=== PATIENT | male | born 2000 ===

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

== ENCOUNTER → 2022-07-09 13:03 | Outpatient (BNVA) | payer OTHER, SELFPAY | PROVIDERS: PCP Internal Medicine; Visit Provider Dietitian, Registered | DX: E66.9 Obesity, unspecified (principal); Z68.30 Body mass index [BMI] 30.0-30.9, adult | CPT/HCPCS: 97802 ==

== ENCOUNTER 2022-07-14 10:55 | Outpatient (REF) | payer OTHER, SELFPAY ==
--- NOTE | ~2022-07-14 | US_ITS ---
EXAMINATION: US ABDOMEN COMPLETE CLINICAL INFORMATION: Other specified abnormal findings of blood chemistry. COMPARISON: None available. TECHNIQUE: Real-time imaging of the abdominal viscera. Technically somewhat limited study secondary to bowel gas. FINDINGS: PANCREAS: Obscured by bowel gas. ABDOMINAL AORTA: The proximal, mid, and distal segments are normal in caliber. INFERIOR VENA CAVA: Visualized portions are normal. LIVER: Normal. The liver is not enlarged. The liver contour is normal. Parenchymal echogenicity is normal. No focal hepatic lesion. There is no intrahepatic biliary duct dilatation seen. GALLBLADDER: Normal. The gallbladder is physiologically distended without evidence of stones, sludge, polyps, wall thickening or pericholecystic fluid. COMMON BILE DUCT: Normal in caliber measuring 0.2 cm in diameter. RIGHT KIDNEY: Normal. No hydronephrosis. No renal calculi or focal parenchymal lesions. The kidney measures 10.3 cm in maximum dimension. LEFT KIDNEY: Normal. No hydronephrosis. No renal calculi or focal parenchymal lesions. The kidney measures 10.9 cm in maximum dimension. SPLEEN: Normal. The spleen measures 11.7 cm in maximum dimension. FREE FLUID: None. US/US abdomen complete IMPRESSION: The pancreas is obscured by bowel gas. Otherwise unremarkable abdominal ultrasound.
== END 2022-07-14 10:56 | disposition home or self-care (01) ==
LOC: HO.US 10:55
PROVIDERS: PCP Internal Medicine; Visit Provider Internal Medicine
DX: R79.89 Other specified abnormal findings of blood chemistry (principal); R19.8 Other specified symptoms and signs involving the digestive system and abdomen
CPT/HCPCS: 76700

== ENCOUNTER → 2022-07-28 14:46 | Outpatient (BNVA) | payer OTHER, SELFPAY | PROVIDERS: PCP Internal Medicine; Referring Provider Internal Medicine; Visit Provider Surgery | DX: B36.9 Superficial mycosis, unspecified (principal); R19.8 Other specified symptoms and signs involving the digestive system and abdomen | CPT/HCPCS: 99202 ==

== ENCOUNTER 2023-03-04 10:55 | Outpatient (AMB) | payer OTHER, SELFPAY ==
[2023-03-04 11:08] VITALS: BP 122/70; PULSE 75; O2SAT 98; BMI 35.0
--- NOTE | 2023-03-04 11:08 | MHC.PC.OV ---
Vital Signs 03/04/23 11:08 Height 5 ft 9 in Weight 237 lb BMI 35.0 BP 122/70 Blood Pressure Location Lt brachial Position Sitting Pulse 75 Pulse Source Pulse Oximeter Pulse Oximetry (%) 98 Oxygen Delivery Method Room Air Intake Visit Reasons: Annual PE Allergies No Known Allergies Allergy (Verified 03/04/23 11:08) Medication List - Last Reconciled 03/04/23 by Marie Murrieta MD clotrimazole 1% 1 appl topical BID 4 weeks Tobacco use date assessed: 07/06/22 Dental Screening Dental Screen Date: 03/04/23 Did you have a dental visit in the last 12 months?: Yes Did you have a dental problem in the last 6 months where you did not have access to dental care?: No Was dental information given to patient?: Patient has dentist HPI Annual PE HPI Details 22-year-old obese male with a history of GERD asthma last seen in July 2022. Patient had some umbilical drainage prescribed antifungal but referral to surgeon done.. Had abdominal plasty done last year. Patient was seen by the surgeon for 2nd opinion on this diagnosis of superficial mycosis which could be related to postsurgical extreme depth of the umbilicus advised clotrimazole cream and meticulously dry the umbilical skin no surgical intervention needed. Patient also had the ultrasound of the abdomen done which was unremarkable. Patient is here for physical interpret mera Richter [id number] going to the gym now and eating better states taking creatine-4 days ago-on eating having chest, only on eating ,no sob, , no cough, - went away already and not related to gym - decline flu shot PFSH Medical History (Updated 03/04/23 @ 11:18 by Marie Murrieta MD) Obesity (BMI 30.0-34.9) GERD (gastroesophageal reflux disease) Asthma Surgical History H/O plastic surgery History of circumcision Family History Father Diabetes HTN (hypertension) Mother Depression Paternal Grandmother Colon cancer Maternal Grandfather Myocardial infarction Social History Household Members: Family Housing: Apartment Alcohol intake: never Patient Tobacco Use Status: Never used Tobacco e-Cigarette/Vaping Use: Never Used Use of substances other than those prescribed or required for medical reasons: No service: No Current occupational status: employed Current occupation: [employer] Cognitive needs: No Hearing needs: No Vision needs: No Questionnaire PHQ-9 Over the last 2 weeks, how often have you been bothered by any of the following problems? 1. Little interest or pleasure in doing things: not at all 2. Feeling down, depressed, or hopeless: not at all 3. Trouble falling or staying asleep, or sleeping too much: not at all 4. Feeling tired or having little energy: not at all 5. Poor appetite or overeating: not at all 6. Feeling bad about yourself - or that you are a failure or have let yourself or your family down: not at all 7. Trouble concentrating on things, such as reading the newspaper or watching television: not at all 8. Moving or speaking so slowly that other people could have noticed. Or the opposite - being so fidgety or restless that you have been moving around a lot more than usual: not at all 9. Thoughts that you would be better off or of hurting yourself in some way: not at all Total score: 0 Depression Screening Interpretation: Negative Depression Screening Done: Yes Source: Developed by Drs. Tyson Macario, Reg Law and colleagues, with an educational sammy from [employer]. Thrive Questionnaire Date Thrive assessed: 07/06/22 AUDIT C Alcohol Use Questionnaire (AUDIT-C) 1. How often do you have a drink containing alcohol?: Never 3. How often do you have six or more drinks on one occasion?: Never Total Score: 0 PANDA-7 AMB Questionnaire PANDA-7 Date PANDA - 7 assessed: 07/06/22 Source: Developed by Elen Baker Kurt Kroenke and colleagues, with an educational sammy from [employer]. Review of Systems Const Denies poor appetite and Denies weakness Eyes Denies no additional complaints ENT Reports Normal hearing present, Denies dizziness, Denies nasal congestion, Denies tinnitus and Denies sore throat Card Denies chest pain, Denies syncope, Denies rapid heart rate and Denies dyspnea Resp Denies cough and Denies dyspnea GI Denies change in stool character, Reports constipation, Denies diarrhea, Denies nausea and Denies vomiting Denies dysuria and Denies urinary frequency Neuro Reports Normal hearing present, Denies confusion, Denies dizziness, Denies syncope and Denies weakness Psych Denies confusion Physical exam (Primary Care) Vital Signs: Last Vital Signs Pulse 75 03/04/23 11:08 BP 122/70 03/04/23 11:08 Pulse Ox 98 03/04/23 11:08 Oxygen Delivery Method Room Air 03/04/23 11:08 BMI result Body Mass Index 35.0 Tobacco/Smoking Status: Tobacco use Status Tobacco use date assessed 07/06/22 03/04/23 11:14 Patient Tobacco Use Status Never used Tobacco 03/04/23 11:14 e-Cigarette/Vaping Use Never Used 03/04/23 11:14 PHQ-9: PHQ-9 Score PHQ-9: Total score 0 03/04/23 11:14 Depression Screening Interpretation: Negative Thrive Assessment: Date of Thrive Assessment Date Thrive assessed 07/06/22 03/04/23 11:14 Const General: No confusion Orientation/consciousness: No confusion HENMT Head: Yes normocephalic Ears: external ears normal and TM's normal bilaterally Face and sinus: Yes normal facial exam Mouth: moist mucous membranes Throat: Yes tonsils normal Eyes Conjunctivae: conjunctivae normal Pupils: Equal, round and reactive pupils present and Pupil accommodation reflex normal Direct Ophthalmoscopy: normal light reflex Neck Neck: No lymphadenopathy Thyroid: Thyroid normal Chest Chest palpation & inspection: normal inspection of the chest Resp Effort & Inspection: normal respiratory effort and no audible wheezes Auscultation: clear to auscultation bilaterally, no crackles, no wheezes and lung sounds not diminished Cardio Rate: regular rate Rhythm: regular rhythm Peripheral pulses: radial pulses present and dorsalis pedis present GI Palpation (GI): no masses Auscultation: normal bowel sounds and normoactive bowel sounds Rectal Exam - Male: Yes deferred Skin General skin exam: no rashes or lesions noted Rashes: no rashes Neuro General: No confusion Cranial nerves: Yes Equal, round and reactive pupils present and Yes Normal hearing present Cognition (Neuro): normal cognition Gait exam (Neuro): Normal gait present Motor exam (neuro): 5/5 motor strength present throughout Deep tendon reflexes (DTR's): Right brachioradialis reflex intensity grade: 2+, Left brachioradialis reflex intensity grade: 2+, Right patellar reflex intensity grade: 2+ and Left patellar reflex intensity grade: 2+ Extrem General: No edema Assessment and Plan Assessment & Plan (1) Annual physical exam: Code(s): Z00.00 - Encounter for general adult medical examination without abnormal findings (2) Obesity (BMI 30-39.9): Code(s): E66.9 - Obesity, unspecified Plan: Needs to diet and exercise patient did meet with the liquid loader (3) GERD (gastroesophageal reflux disease): Code(s): K21.9 - Gastro-esophageal reflux disease without esophagitis Plan: Avoid the foods that causes that usually spicy foods, tomato products, juices, coffee, soda and foods that your sensitive to. After eating do not lie down, allow 3-4 hours before in lie down. And keep the head of bed above 30 degrees to avoid the acid from going up. (4) Asthma: Code(s): J45.909 - Unspecified asthma, uncomplicated Plan: Stable (5) Umbilical discharge: Code(s): R19.8 - Other specified symptoms and signs involving the digestive system and abdomen Plan: Patient has seen the surgeon and the status post abdominal plasty with a deep umbilicus causing fungal infection Coding Level of Care Code Est Pt Prev Care 18-39y(85461) Diagnoses Annual physical exam Z00.00 Obesity (BMI 30-39.9) E66.9 GERD (gastroesophageal reflux disease) K21.9 Asthma J45.909 Umbilical discharge R19.8
== END 2023-03-04 11:54 | disposition home or self-care (01) ==
PROVIDERS: PCP Internal Medicine; Visit Provider Internal Medicine
DX: Z00.00 Encounter for general adult medical examination without abnormal findings (principal); E66.9 Obesity, unspecified; Z68.35 Body mass index [BMI] 35.0-35.9, adult; K21.9 Gastro-esophageal reflux disease without esophagitis; J45.909 Unspecified asthma, uncomplicated; R19.8 Other specified symptoms and signs involving the digestive system and abdomen
CPT/HCPCS: 99395

== ENCOUNTER 2023-09-02 09:43 | Outpatient (AMB) | payer OTHER, SELFPAY ==
[2023-09-02 09:55] VITALS: BP 124/72; PULSE 87; O2SAT 99; BMI 39.0
--- NOTE | 2023-09-02 09:55 | MHC.PC.OV ---
Vital Signs 09/02/23 09:55 Height 5 ft 9 in Weight 264 lb BMI 39.0 BP 124/72 Blood Pressure Location Lt brachial Position Sitting Pulse 87 Pulse Source Pulse Oximeter Pulse Oximetry (%) 99 Oxygen Delivery Method Room Air Intake Visit Reasons: obesity President And Chief Operating Officer Required: Yes President And Chief Operating Officer Language: Lithuanian Allergies No Known Allergies Allergy (Verified 09/02/23 10:03) Tobacco use date assessed: 09/02/23 Dental Screening Dental Screen Date: 09/02/23 Did you have a dental visit in the last 12 months?: Yes Did you have a dental problem in the last 6 months where you did not have access to dental care?: No Was dental information given to patient?: Patient has dentist HPI obesity HPI Details 23-year-old obese male(noted about 30 lb weight gain) GERD asthma coming in for follow-up. Last seen in February physical exam. [facility] Medical History (Updated 03/04/23 @ 11:18 by Marie Murrieta MD) Obesity (BMI 30.0-34.9) GERD (gastroesophageal reflux disease) Asthma Surgical History H/O plastic surgery History of circumcision Family History Father Diabetes HTN (hypertension) Mother Depression Paternal Grandmother Colon cancer Maternal Grandfather Myocardial infarction Social History Household Members: Family Housing: Apartment Alcohol intake: never Patient Tobacco Use Status: Never used Tobacco e-Cigarette/Vaping Use: Never Used service: No Current occupational status: employed Current occupation: [employer] Cognitive needs: No Hearing needs: No Vision needs: No Questionnaire Thrive Questionnaire Date Thrive assessed: 07/06/22 AUDIT C Alcohol Use Questionnaire (AUDIT-C) 1. How often do you have a drink containing alcohol?: Never 3. How often do you have six or more drinks on one occasion?: Never Total Score: 0 PANDA-7 AMB Questionnaire PANDA-7 Date PANDA - 7 assessed: 09/02/23 Feeling nervous, anxious, or on edge: 0 = Not at all Not being able to stop or control worryin = Not at all Worrying too much about different things: 0 = Not at all Trouble relaxin = Not at all Being so restless that it is hard to sit still: 0 = Not at all Becoming easily annoyed or irritable: 0 = Not at all Feeling afraid as if something awful might happen: 0 = Not at all Total PANDA-7 score (0-4 normal; 5-9 mild; 10-14 moderate; 15-21 severe): 0 Source: Developed by Drs. Tyson Macario, Elen Birmingham, Reg Ridley and colleagues, with an educational sammy from [employer]. PANDA-7 Assessment Billing PANDA-7 Assessment Tool: PANDA-7 Assessment 22930 Physical exam (Primary Care) Vital Signs: Last Vital Signs Pulse 87 09/02/23 09:55 BP 124/72 09/02/23 09:55 Pulse Ox 99 09/02/23 09:55 Oxygen Delivery Method Room Air 09/02/23 09:55 BMI result Body Mass Index 39.0 Tobacco/Smoking Status: Tobacco use Status Tobacco use date assessed 09/02/23 09/02/23 10:02 Patient Tobacco Use Status Never used Tobacco 09/02/23 09:55 e-Cigarette/Vaping Use Never Used 09/02/23 09:55 Thrive Assessment: Date of Thrive Assessment Date Thrive assessed 07/06/22 09/02/23 09:55 Const General: alert; No acute distress Eyes Conjunctivae: conjunctivae normal Resp Auscultation: clear to auscultation bilaterally Cardio Rate: regular rate Rhythm: regular rhythm GI Inspection: Yes normal to inspection Extrem General: Yes normal to inspection and No edema Assessment and Plan Assessment & Plan (1) Obesity (BMI 30-39.9): Code(s): E66.9 - Obesity, unspecified Plan: Diet and exercise, patient is reminded about the blood work that was requested in 02/22/2023 (2) GERD (gastroesophageal reflux disease): Code(s): K21.9 - Gastro-esophageal reflux disease without esophagitis Plan: Avoid the foods that causes that usually spicy foods, tomato products, juices, coffee, soda and foods that your sensitive to. After eating do not lie down, allow 3-4 hours before in lie down. And keep the head of bed above 30 degrees to avoid the acid from going up. (3) Asthma: Code(s): J45.909 - Unspecified asthma, uncomplicated Plan: Stable without any inhaler Coding Level of Care Code Est Pt Level 4 (33870) Diagnoses Obesity (BMI 30-39.9) E66.9 GERD (gastroesophageal reflux disease) K21.9 Asthma J45.909 Additional Codes PANDA-7 Assessment Billing - PANDA-7 Assessment Tool: PANDA-7 Assessment [id number] ([id number])
== END 2023-09-02 10:43 | disposition home or self-care (01) ==
PROVIDERS: PCP Internal Medicine; Visit Provider Internal Medicine
DX: K21.9 Gastro-esophageal reflux disease without esophagitis (principal); E66.9 Obesity, unspecified; J45.909 Unspecified asthma, uncomplicated; Z68.39 Body mass index [BMI] 39.0-39.9, adult
CPT/HCPCS: 99214

== ENCOUNTER 2024-01-17 06:04 | Outpatient (REF) | payer OTHER, SELFPAY ==
[2024-01-17 06:18] LABS: MANUAL DIFF FLAG NO
[2024-01-17 07:24] LABS: Basophils Percent Auto 0.4 % (0-2); Eosinophils Absolute Auto 0.3 X10*3/uL (0.0-0.4); Eosinophils Percent Auto 4.1 % (0-4); Hematocrit 48.2 % (42.0-52.0); Hemoglobin 16.1 g/dl (14.0-18.0); Imm Gran Abs Auto 0.01 X10*3/uL (0.00-0.03); Imm Gran Pct Auto 0.1 % (0.0-0.4); Lymphocytes Absolute Auto 2.5 X10*3/uL (1.2-4.9); Lymphocytes Percent Auto 37.5 % (20-40); Mean Corpuscular HGB Conc 33.4 g/dl (31.0-36.0); Mean Corpuscular Hemoglobin 28.5 pg (27.0-33.0); Mean Corpuscular Volume 85.5 fL (80.0-98.0); Mean Platelet Volume 10.2 fL (9.4-12.4); Monocytes Absolute Auto 0.5 X10*3/uL (0.1-1.2); Monocytes Percent Auto 7.6 % (2-11); Neutrophils Absolute Auto 3.4 x10*3/uL (2.0-8.3); Neutrophils Percent Auto 50.3 % (45-73); Platelet Count 323 X10*3/uL (160-400); Red Blood Count 5.64 X10*6/uL (4.60-5.80); Red Cell Distribution Width 12.2 % (11.0-16.0); White Blood Count 6.8 X10*3/uL (4.8-10.8)
[2024-01-17 07:26] LABS: Estimated Average Glucose 105 mg/dL; Hemoglobin A1C 131.8197 umol/L; Hemoglobin A1c % 5.3 % (<6.0); Total Hemoglobin (HGBA1C) 3878.2134 umol/L
[2024-01-17 07:52] LABS: Alanine Aminotransferase 16 U/L (0-40); Albumin Level 4.4 g/dL (3.5-5.0); Alkaline Phosphatase 65 U/L (39-117); Anion Gap 11 (12-20); Aspartate Amino Transferase 15 U/L (5-37); Bilirubin Total 0.4 mg/dL (0.0-1.0); Blood Urea Nitrogen 14 mg/dL (9-16); Calcium 9.8 mg/dL (8.4-10.2); Carbon Dioxide 25 mmol/L (22-29); Chloride 108 mmol/L (96-108); Cholesterol 164 mg/dL (<200); Estimated Glomerular Filt Rate > 60; Glucose Random 99 mg/dL (60-115); HDL Cholesterol 48 mg/dL (>40); LDL Cholesterol Calculated 99 mg/dL (<100); Potassium 3.9 mmol/L (3.3-5.1); Sodium 140 mmol/L (135-145); Total Protein 7.1 g/dL (6.5-8.0); Triglycerides 87 mg/dL (<150)
[2024-01-17 08:08] LABS: Thyroid Stimulating Hormone 1.05 uIU/mL (0.32-4.0)
[2024-01-17 08:21] LABS: Folate 4.3 ng/mL (> or = 4.0); Vitamin B12 187 pg/mL (200-900)
== END 2024-01-17 06:05 | disposition home or self-care (01) ==
LOC: HO.LAB 06:04
PROVIDERS: PCP Internal Medicine; Visit Provider Internal Medicine
DX: E78.00 Pure hypercholesterolemia, unspecified (principal); E66.9 Obesity, unspecified
CPT/HCPCS: 36415; 80053; 80061; 82607; 82746; 83036; 84439; 84443; 85025

== ENCOUNTER 2024-01-18 14:35 | Outpatient (AMB) | payer OTHER, SELFPAY ==
[2024-01-18 14:55] VITALS: BP 126/72; PULSE 83; O2SAT 99; BMI 37.5
--- NOTE | 2024-01-18 14:55 | A.OFFPC_ITS ---
Vital Signs 3 01/18/24 14:55 Height 5 ft 9 in Weight 254 lb BMI 37.5 BP 126/72 Blood Pressure Location Lt brachial Position Sitting Pulse 83 Pulse Source Pulse Oximeter Pulse Oximetry (%) 99 Oxygen Delivery Method Room Air Intake Visit Reasons: obesity Allergies No Known Allergies Allergy (Verified 01/18/24 14:56) Tobacco use date assessed: 09/02/23 Dental Screening Dental Screen Date: 09/02/23 HPI obesity 2 HPI0 Details 23-year-old obese male with GERD and ast hma coming in for follow-up. Last seen in 08/23/2023. Patient is here for follow-up. Noted 10 lb weight loss called yesterday due to the blood work that was done showing a low B12. Patient also complains of having a left cyst that has appeared for couple of months now post ear piercing. [facility] Medical History (Updated 01/18/24 @ 15:38 by Marie Murrieta MD) Obesity (BMI 30.0-34.9) GERD (gastroesophageal reflux disease) Asthma Surgical History H/O plastic surgery History of circumcision Family History Father Diabetes HTN (hypertension) Mother Depression Paternal Grandmother Colon cancer Maternal Grandfather Myocardial infarction Social History Household Members: Family Housing: Apartment Alcohol intake: never Patient Tobacco Use Status: Never used Tobacco Tobacco use type: Cigarette e-Cigarette/Vaping Use: Never Used service: No Current occupational status: employed Current occupation: [employer] Cognitive needs: No Hearing needs: No Vision needs: No Questionnaire PHQ-9 Over the last 2 weeks, how often have you been bothered by any of the following problems? 1. Little interest or pleasure in doing things: not at all 2. Feeling down, depressed, or hopeless: not at all 3. Trouble falling or staying asleep, or sleeping too much: not at all 4. Feeling tired or having little energy: not at all 5. Poor appetite or overeating: not at all 6. Feeling bad about yourself - or that you are a failure or have let yourself or your family down: not at all 7. Trouble concentrating on things, such as reading the newspaper or watching television: not at all 8. Moving or speaking so slowly that other people could have noticed. Or the opposite - being so fidgety or restless that you have been moving around a lot more than usual: not at all 9. Thoughts that you would be better off or of hurting yourself in some way: not at all Total score: 0 Depression Screening Interpretation: Negative Depression Screening Done: Yes Source: Developed by Drs. Tyson Macario, Elen Birmingham, Reg Ridley and colleagues, with an educational sammy from [employer]. Thrive Questionnaire Date Thrive assessed: 07/06/22 Are you currently unemployed and looking for a job?: No AUDIT C Alcohol Use Questionnaire (AUDIT-C) 1. How often do you have a drink containing alcohol?: Never 2. How many drinks containing alcohol do you have on a typical day when you are drinking?: 1 or 2 3. How often do you have six or more drinks on one occasion?: Never Total Score: 0 PANDA-7 AMB Questionnaire PANDA-7 Date PANDA - 7 assessed: 09/02/23 Source: Developed by Drs. Tyson Macario, Elen Birmingham, Reg Ridley and colleagues, with an educational sammy from [employer]. Physical exam (Primary Care) Vital Signs: Last Vital Signs Pulse 83 01/18/24 14:55 BP 126/72 01/18/24 14:55 Pulse Ox 99 01/18/24 14:55 Oxygen Delivery Method Room Air 01/18/24 14:55 BMI result Body Mass Index 37.5 Tobacco/Smoking Status: Tobacco use Status Tobacco use date assessed 09/02/23 01/18/24 15:00 Patient Tobacco Use Status Never used Tobacco 01/18/24 15:00 Tobacco use type Cigarette 01/18/24 15:00 e-Cigarette/Vaping Use Never Used 01/18/24 15:00 PHQ-9: PHQ-9 Score PHQ-9: Total score 0 01/18/24 15:00 Depression Screening Interpretation: Negative Thrive Assessment: Date of Thrive Assessment Date Thrive assessed 07/06/22 01/18/24 15:00 Const General: alert; No acute distress HENMT Head images: 2 1. 5 mm yellowish mass noted Eyes Conjunctivae: conjunctivae normal Resp Auscultation: clear to auscultation bilaterally Cardio Rate: regular rate Rhythm: regular rhythm GI Inspection: Yes normal to inspection Extrem General: Yes normal to inspection and No edema Coding Level of Care Code Est Pt Level 4 (10302) Diagnoses Obesity (BMI 30-39.9) E66.9 Deficiency of vitamin B12 E53.8 GERD (gastroesophageal reflux disease) K21.9 Mild intermittent asthma without complication J45.20 Asthma severity: mild Asthma persistence: intermittent Asthma complication type: uncomplicated Skin cyst L72.9 Assessment & Plan Assessment & Plan (1) Obesity (BMI 30-39.9): Code(s): E66.9 - Obesity, unspecified Category: Medical Plan: Continue with diet and exercise. Noted 10 lb weight loss (2) Deficiency of vitamin B12: Code(s): E53.8 - Deficiency of other specified B group vitamins Category: Medical Plan: Discussed about follow-up blood work for this as well as starting on vitamin B12 and folic acid.. Discussed with the patient that I have request for multiple follow-up blood test for the low B12 and folic acid. Replacement done but would like to have the blood work before starting the replacement. (3) GERD (gastroesophageal reflux disease): Code(s): K21.9 - Gastro-esophageal reflux disease without esophagitis Category: Medical Plan: Avoid the foods that causes that usually spicy foods, tomato products, juices, coffee, soda and foods that your sensitive to. After eating do not lie down, allow 3-4 hours before in lie down. And keep the head of bed above 30 degrees to avoid the acid from going up. (4) Asthma: Code(s): J45.909 - Unspecified asthma, uncomplicated Category: Medical Qualifiers: Asthma severity: mild Asthma persistence: intermittent Asthma complication type: uncomplicated Qualified Code(s): J45.20 - Mild intermittent asthma, uncomplicated Plan: Stable (5) Skin cyst: Comment: L ear Code(s): L72.9 - Follicular cyst of the skin and subcutaneous tissue, unspecified Category: Medical Plan: Patient is referred to the surgeon for excision. Orders: Orders 2 Intrinsic Factor Antibodies Today E53.8 - Deficiency of other specified B group vitamins Parietal Cell Antibody Today E53.8 - Deficiency of other specified B group vitamins Referrals 2 General Surgery Referral L72.9 - Follicular cyst of the skin and subcutaneous tissue, unspecified Medications: New 2 folic acid 1 mg PO DAILY 30 tabs 3RF E53.8 - Deficiency of other specified B group vitamins cyanocobalamin (vitamin B-12) 1,000 mcg PO DAILY 30 caps 3RF E53.8 - Deficiency of other specified B group vitamins
== END 2024-01-18 15:40 | disposition home or self-care (01) ==
PROVIDERS: PCP Internal Medicine; Visit Provider Internal Medicine
DX: K21.9 Gastro-esophageal reflux disease without esophagitis (principal); E66.812 Obesity, class 2; Z68.37 Body mass index [BMI] 37.0-37.9, adult; E53.8 Deficiency of other specified B group vitamins; J45.20 Mild intermittent asthma, uncomplicated; L72.9 Follicular cyst of the skin and subcutaneous tissue, unspecified

== ENCOUNTER → 2024-01-18 14:35 | Outpatient (BNVA) | payer OTHER, SELFPAY | PROVIDERS: PCP Internal Medicine; Visit Provider Internal Medicine | DX: E66.9 Obesity, unspecified (principal); E53.8 Deficiency of other specified B group vitamins; K21.9 Gastro-esophageal reflux disease without esophagitis; J45.20 Mild intermittent asthma, uncomplicated; L72.9 Follicular cyst of the skin and subcutaneous tissue, unspecified | CPT/HCPCS: 96127; 99212 ==

== ENCOUNTER 2024-01-24 15:50 | Outpatient (REF) | payer OTHER, SELFPAY ==
[2024-01-25 21:18] LABS: Homocysteine 16.3 umol/L (<11.4)
[2024-01-27 20:24] LABS: Methylmalonic Acid 347 nmol/L (55-335)
[2024-01-28 16:48] LABS: Parietal Cell Antibody <=20.0 Unit (<=20.0)
[2024-01-28 20:44] LABS: Intrinsic Factor Antibodies Negative (Negative)
== END 2024-01-24 15:51 | disposition home or self-care (01) ==
LOC: HO.LAB 15:50
PROVIDERS: PCP Internal Medicine; Visit Provider Internal Medicine
DX: E53.8 Deficiency of other specified B group vitamins (principal)
CPT/HCPCS: 36415; 83090; 83516; 83921; 86340

== ENCOUNTER 2024-02-15 14:02 | Outpatient (AMB) | payer OTHER, SELFPAY ==
--- NOTE | 2024-02-15 14:04 | MHC.OFFVIS ---
Vital Signs 02/15/24 14:10 Height 5 ft 9 in Weight 250 lb BMI 36.9 BP 135/61 Blood Pressure Location Rt brachial Position Sitting Pulse 75 Intake Visit Reasons: cyst ~ Lt post auricular Intake Note: Patient referred for bump on Lt post earlobe. Present for 3m. Hx of piercing. Patient c/o: denies pain or discomfort. Director Of Strategic Communications Required: No Accompanied by: Self / Same As Patient Allergies No Known Allergies Allergy (Verified 02/15/24 14:09) HPI Comments Details: Patient presents here for evaluation of a left postauricular mass. He had an hearing there and has developed a growth/scar in the area that he would like to have evaluated. He does not have this on the contralateral right side. Chart was reviewed and patient evaluated [facility] Medical History Obesity (BMI 30.0-34.9) GERD (gastroesophageal reflux disease) Asthma Surgical History H/O plastic surgery History of circumcision Family History Father Diabetes HTN (hypertension) Mother Depression Paternal Grandmother Colon cancer Maternal Grandfather Myocardial infarction Social History Household Members: Family Housing: Apartment Alcohol intake: never Patient Tobacco Use Status: Never used Tobacco Tobacco use type: Cigarette e-Cigarette/Vaping Use: Never Used service: No Current occupational status: employed Current occupation: [employer] Cognitive needs: No Hearing needs: No Vision needs: No Physical Exam Vital Signs: Last Vital Signs Pulse 75 02/15/24 14:10 BP 135/61 02/15/24 14:10 BMI result Body Mass Index 36.9 HEENT Other: Patient has a keloid type growth measuring approximately 1 cm x 1 cm of the left posterior earlobe. Contralateral right side is within normal limits Assessment & Plan Assessment & Plan (1) Keloid: Code(s): L91.0 - Hypertrophic scar Category: Surgical Plan At present, this is not very symptomatic to the patient. Because of the risk of recurrence I think that the present plan will be to treat this conservatively. She had this increased in size, were become more symptomatic, patient was been instructed to come back the office for further evaluation but at present we will treat him conservatively. All questions answered. Coding Level of Care Code New Pt Level 3 (64181) Diagnoses Keloid L91.0
[2024-02-15 14:10] VITALS: BP 135/61; PULSE 75; BMI 36.9
== END 2024-02-15 14:27 | disposition home or self-care (01) ==
PROVIDERS: PCP Internal Medicine; Referring Provider Internal Medicine; Visit Provider Surgery
DX: L91.0 Hypertrophic scar (principal)
CPT/HCPCS: 99203

== ENCOUNTER → 2024-02-15 14:02 | Outpatient (BNVA) | payer OTHER, SELFPAY | PROVIDERS: PCP Internal Medicine; Referring Provider Internal Medicine; Visit Provider Surgery | DX: L91.0 Hypertrophic scar (principal) | CPT/HCPCS: 99202 ==

== ENCOUNTER 2024-05-01 15:20 | Outpatient (AMB) | payer OTHER, SELFPAY ==
--- NOTE | 2024-05-01 15:26 | MHC.PC.OV ---
Vital Signs 05/01/24 15:28 Height 5 ft 9 in Weight 271 lb BMI 40.0 BP 110/72 Blood Pressure Location Lt brachial Position Sitting Pulse 88 Pulse Source Pulse Oximeter Temp 97.1 F Temp Source Skin Pulse Oximetry (%) 98 Oxygen Delivery Method Room Air Intake Visit Reasons: PE Intake Note: Patient is here today for a physical. Orientation And Mobility Instructor Required: Yes Orientation And Mobility Instructor Language: Tubular Products Fabricator Name: Renard ([id number]) Information Interpreted: non-clinical & clinical Data Processing Manager: Present Accompanied by: Father Allergies No Known Allergies Allergy (Verified 05/01/24 15:44) Medication List - Last Reconciled 05/01/24 by Kita Peguero PA-C cyanocobalamin (vitamin B-12) 1,000 mcg PO DAILY folic acid 1 mg PO DAILY Tobacco use date assessed: 05/01/24 Dental Screening Dental Screen Date: 05/01/24 Did you have a dental visit in the last 12 months?: Yes Did you have a dental problem in the last 6 months where you did not have access to dental care?: No Was dental information given to patient?: Patient has dentist HPI PE HPI Details 23-year-old male with past medical history of asthma and GERD last seen by Dr. Murrieta 01/2024 coming in for annual exam.? In review of the notes, patient was seen by General surgery 02/26 for keloid advised to treat conservatively and asymptomatic can consider surgery.? district manager postal service Renard ([id number]) was used for the duration of this visit. patient presents today with his dad. He tells us the lesion on the left earlobe has been painful and is growing and would like to follow up with General surgery. He also mentions having a rash in his back that is not itchy or painful and has been present for several years and has not been worsening. [facility] Medical History Obesity (BMI 30.0-34.9) GERD (gastroesophageal reflux disease) Asthma Surgical History H/O plastic surgery History of circumcision Family History Father Diabetes HTN (hypertension) Mother Depression Paternal Grandmother Colon cancer Maternal Grandfather Myocardial infarction Social History Household Members: Family Housing: Apartment Alcohol intake: never Patient Tobacco Use Status: Never used Tobacco Tobacco use type: Cigarette e-Cigarette/Vaping Use: Never Used Second Hand Smoke Exposure: No service: No Current occupational status: employed Current occupation: [employer] Cognitive needs: No Hearing needs: No Vision needs: No Questionnaire PHQ-9 Over the last 2 weeks, how often have you been bothered by any of the following problems? 1. Little interest or pleasure in doing things: not at all 2. Feeling down, depressed, or hopeless: not at all 3. Trouble falling or staying asleep, or sleeping too much: not at all 4. Feeling tired or having little energy: not at all 5. Poor appetite or overeating: not at all 6. Feeling bad about yourself - or that you are a failure or have let yourself or your family down: not at all 7. Trouble concentrating on things, such as reading the newspaper or watching television: not at all 8. Moving or speaking so slowly that other people could have noticed. Or the opposite - being so fidgety or restless that you have been moving around a lot more than usual: not at all 9. Thoughts that you would be better off or of hurting yourself in some way: not at all Total score: 0 Depression Screening Interpretation: Negative Depression Screening Done: Yes Source: Developed by Drs. Tyson Macario, Elen Birmingham, Reg Ridley and colleagues, with an educational sammy from [employer]. Thrive Questionnaire Date Thrive assessed: 04/27/24 I am a: Patient What is your living situation today?: I have a steady place to live Within the past 12 months, did the food you bought not last and you didn't have the money to get more?: I choose not to answer this question Within the past 12 months, did you worry whether your food would run out before you got money to buy more?: I choose not to answer this question Do you have trouble paying for medicines?: No Do you have trouble getting transportation to medical appointments?: No Do you have trouble paying your heating and electricity bill?: No Do you have trouble taking care of your child, family member or friend?: No Do you have trouble with day-to-day activities such as bathing, preparing meals, shopping, managing finances, etc.?: No Are you currently unemployed and looking for a job?: No Are you interested in more education?: I choose not to answer this question Please select the resources that you would like help with: None Currently or been in a relationship where the following occur: No concerns reported THRIVE Score: 0 AUDIT C Alcohol Use Questionnaire (AUDIT-C) 1. How often do you have a drink containing alcohol?: Never Total Score: 0 PANDA-7 AMB Questionnaire PANDA-7 Date PANDA - 7 assessed: 04/27/24 Feeling nervous, anxious, or on edge: 0 = Not at all Not being able to stop or control worryin = Not at all Worrying too much about different things: 0 = Not at all Trouble relaxin = Not at all Being so restless that it is hard to sit still: 0 = Not at all Becoming easily annoyed or irritable: 0 = Not at all Feeling afraid as if something awful might happen: 0 = Not at all Total PANDA-7 score (0-4 normal; 5-9 mild; 10-14 moderate; 15-21 severe): 0 Source: Developed by Drs. Tyson Macario, Elen Birmingham, Reg Ridley and colleagues, with an educational sammy from [employer]. PANDA-7 Assessment Billing PANDA-7 Assessment Tool: PANDA-7 Assessment 27697 Review of Systems Const Denies body aches, Denies fatigue, Denies fever(s), Denies frequent falls, Denies headache(s) and Denies weakness Eyes Reports no additional complaints and Denies change in vision ENT Denies dizziness, Denies facial pain, Denies headache(s) and Denies nasal congestion Card Denies chest pain, Denies syncope, Denies irregular heart rhythm, Denies leg edema, Denies lightheadedness and Denies dyspnea Resp Denies cough and Denies dyspnea GI Denies constipation, Denies dyspepsia, Denies diarrhea, Denies nausea and Denies vomiting Denies dysuria, Denies urinary frequency, Denies urinary hesitancy and Denies urinary urgency Musc Denies back pain and Denies myalgias Skin/Breast Reports system reviewed and no additional complaints, except as documented Neuro Denies dizziness, Denies syncope, Denies frequent falls, Denies headache(s) and Denies weakness Psych Reports no additional complaints Endo Denies fatigue Physical exam (Primary Care) Vital Signs: Last Vital Signs Temp 97.1 F 05/01/24 15:28 Pulse 88 05/01/24 15:28 BP 110/72 05/01/24 15:28 Pulse Ox 98 05/01/24 15:28 Oxygen Delivery Method Room Air 05/01/24 15:28 BMI result Body Mass Index 40.0 Tobacco/Smoking Status: Tobacco use Status Tobacco use date assessed 05/01/24 05/01/24 15:34 Patient Tobacco Use Status Never used Tobacco 05/01/24 15:26 Tobacco use type Cigarette 05/01/24 15:26 e-Cigarette/Vaping Use Never Used 05/01/24 15:26 PHQ-9: PHQ-9 Score PHQ-9: Total score 0 05/01/24 15:34 Depression Screening Interpretation: Negative Thrive Assessment: Date of Thrive Assessment Date Thrive assessed 04/27/24 05/01/24 15:26 Currently or been in a relationship where the following occur: No concerns reported Const General: cooperative, healthy appearing, comfortable and no acute distress Orientation/consciousness: patient oriented x3 HENMT Head: Yes normocephalic Ears: hearing grossly normal bilaterally, external ears normal, TM's normal bilaterally and EAC's normal General nose exam: Normal external nose present Face and sinus: Yes normal facial exam and Yes sinuses nontender Mouth: Normal oral and palatal mucosa present and tongue normal Throat: Yes posterior oropharynx normal Eyes General: appearance normal, both eyes and all related structures Conjunctivae: conjunctivae normal Pupils: Equal, round and reactive pupils present EOM: EOMs intact bilaterally and No Nystagmus present Neck Neck: Yes normal visual inspection, Yes full ROM and Yes no lymphadenopathy Chest Chest palpation & inspection: normal inspection of the chest Resp Effort & Inspection: normal respiratory effort Auscultation: clear to auscultation bilaterally, no crackles, no rales, no rhonchi, no wheezes and breath sounds present Cardio Rate: regular rate Rhythm: regular rhythm Peripheral pulses: radial pulses present and dorsalis pedis present GI Inspection: Yes normal to inspection and No Abdominal wall edema Palpation (GI): Soft to palpation, not firm and nontender Auscultation: normal bowel sounds Rectal Exam - Male: Yes deferred General: Yes no CVA tenderness Back/Spine/Pelvis Back: no CVA tenderness Skin Other: Multiple red raised bumps over the entirety of the back Neuro General: patient oriented x3 Cranial nerves: Yes Equal, round and reactive pupils present, Yes Midline tongue present, Yes Ability to bilaterally elevate shoulders present and No Nystagmus present Gait exam (Neuro): Normal gait present Extrem General: Yes normal to inspection, Yes full ROM, No no pedal edema and No edema Psych Speech and movement: Normal speech and movement present Affect: normal affect Insight: Good insight present (Psych) Judgement: Good judgement present (Psych) Coding Level of Care Code Est Pt Prev Care [id number]) Diagnoses Keloid L91.0 Deficiency of vitamin B12 E53.8 Obesity (BMI 30-39.9) E66.9 Annual physical exam Z00.00 GERD (gastroesophageal reflux disease) K21.9 Mild intermittent asthma without complication J45.20 Asthma severity: mild Asthma persistence: intermittent Asthma complication type: uncomplicated Keratosis pilaris L85.8 Additional Codes PANDA-7 Assessment Billing - PANDA-7 Assessment Tool: PANDA-7 Assessment [id number] ([id number]) Assessment & Plan Assessment & Plan (1) Keloid: Code(s): L91.0 - Hypertrophic scar Category: Surgical Plan: Recently seen by General surgery advised conservative treatment over surgical intervention. Continue to follow up with General surgery as needed. Patient complaining of pain and will plan to follow up with General surgery (2) Deficiency of vitamin B12: Code(s): E53.8 - Deficiency of other specified B group vitamins Category: Medical Plan: On oral vitamin B12 ordered for updated blood work. (3) Obesity (BMI 30-39.9): Code(s): E66.9 - Obesity, unspecified Category: Medical Plan: Healthy diet and regular exercise is encouraged. (4) Annual physical exam: Code(s): Z00.00 - Encounter for general adult medical examination without abnormal findings Category: Medical Plan: Patient is up-to-date on all recommended screenings for his age, STD screening labs ordered. He is not up-to-date with his tetanus vaccine and declines injection today. Blood work is up-to-date ordered for repeat blood work for vitamin B12 and folate and plan to follow up yearly or sooner if new problems arise. (5) GERD (gastroesophageal reflux disease): Code(s): K21.9 - Gastro-esophageal reflux disease without esophagitis Category: Medical Plan: Avoid trigger foods such as citrus, tomato products, soda, caffeine, spicy foods and other foods that may be irritating to your stomach. Avoid laying flat 3-4 hours after eating and elevate the head of the bed 30 degrees to prevent acid from moving into the esophagus. Not currently on medical management (6) Asthma: Code(s): J45.909 - Unspecified asthma, uncomplicated Category: Medical Qualifiers: Asthma severity: mild Asthma persistence: intermittent Asthma complication type: uncomplicated Qualified Code(s): J45.20 - Mild intermittent asthma, uncomplicated Plan: Asthma currently controlled without the use of medications. Avoid triggers such as allergies. (7) Keratosis pilaris: Code(s): L85.8 - Other specified epidermal thickening Category: Medical Plan: Patient has presence of keratosis pilaris over the back prescriptions that were Amlactin and referral placed to Dermatology. Plan This note was constructed using voice recognition software. While every effort has been made to ensure accuracy and api product manager, still areas may have been included sometimes these areas may affect the content or meeting of the given symptoms. Total time spent caring for the patient today was 30 minutes. This includes time spent before the visit reviewing the chart, time spent during the visit, and time spent after the visit and documentation. Orders: Orders CT NG by PCR Today Z00.00 - Encounter for general adult medical examination without abnormal findings Vitamin B12 and Folate Today E53.8 - Deficiency of other specified B group vitamins Referrals Dermatology Referral L85.8 - Other specified epidermal thickening Medications: New ammonium lactate 12% (AmLactin) 1 appl topical DAILY 225 grams 1RF Refilled folic acid 1 mg PO DAILY 30 tabs 3RF E53.8 - Deficiency of other specified B group vitamins cyanocobalamin (vitamin B-12) 1,000 mcg PO DAILY 30 caps 3RF E53.8 - Deficiency of other specified B group vitamins
[2024-05-01 15:28] VITALS: BP 110/72; PULSE 88; TEMP 36.2; O2SAT 98; BMI 40.0
== END 2024-05-01 16:03 | disposition home or self-care (01) ==
PROVIDERS: PCP Internal Medicine
DX: Z00.00 Encounter for general adult medical examination without abnormal findings (principal); L91.0 Hypertrophic scar; E66.9 Obesity, unspecified; Z68.41 Body mass index [BMI] 40.0-44.9, adult; E53.8 Deficiency of other specified B group vitamins; K21.9 Gastro-esophageal reflux disease without esophagitis; J45.20 Mild intermittent asthma, uncomplicated; L85.8 Other specified epidermal thickening